=== PATIENT | female | born 1960 | race Caucasian/White ===

== ENCOUNTER 2020-10-18 10:15 | Inpatient (IN) | payer BC, MEDICAID ==
[~2020-10-18] VITALS: Ht 162.6 cm; Wt 91.6 kg
[2020-10-18] MEDS ORDERED: DEXAMETHASONE SOD PHOSPHATE 6 MG in IV D5W 50 ML IV ONE (10:30)
[2020-10-18 10:37] LABS: ABG OXYGEN SATURATION 93.4 % (92.0-98.5); ABG PCO2 26.2 mmHg (35.0-45.0); ABG PH 7.477 (7.350-7.450); ABG PO2 62.4 mmHg (75.0-100.0); AaDO2 192.7 mmHg; COHb 0.8 % (0.5-1.5); MetHb 0.2 % (0.0-1.5); O2Hb 92.5 % (94.0-97.0); SITE, ABG Right Radial; VENT MODE, BG NASAL CANNULA
[2020-10-18 10:53] LABS: WHITE BLOOD COUNT (AUTO) 4.4 K/uL (4.3-11.0)
[2020-10-18] MEDS ORDERED: DEXAMETHASONE SOD PHOSPHATE 10 MG/ML VIAL ONE (10:53)
[2020-10-18 10:56] LABS: BASOPHILS % (AUTO) 0.3 % (0.0-2.0); HEMATOCRIT 38 % (33-45); HEMOGLOBIN 12.9 g/dL (11.5-14.8); LYMPHOCYTES # (AUTO) 0.6 /CMM (0.8-4.8); LYMPHOCYTES % (AUTO) 13.7 % (20.0-44.0); MEAN CORPUSCULAR HGB CONC 34 g/dl (31.0-36.0); MEAN CORPUSCULAR VOLUME 92 fL (82-100); MONOCYTES # (AUTO) 0.3 /CMM (0.1-1.30); MONOCYTES % (AUTO) 6.6 % (2.0-12.0); NEUTROPHILS # (AUTO) 3.5 /CMM (1.8-8.9); NEUTROPHILS % (AUTO) 79.4 % (43.0-81.0); PLATELET COUNT (AUTO) 179 /CMM (150-450); RED BLOOD CELL COUNT(AUTO) 4.15 MIL/uL (4.0-5.2)
--- NOTE | 2020-10-18 10:57 | NUR ---
MOVE SHEET COMPLETE & CALLED FOR TELE BED.
[2020-10-18 10:59] LABS: CALCIUM, SERUM 9.3 mg/dL (8.5-10.1); CARBON DIOXIDE 23 mmol/L (21-32); CHLORIDE 104 mmol/L (98-107); GLUCOSE 114 mg/dL (74-106); POTASSIUM 4.3 mmol/L (3.5-5.1); SODIUM SERUM 138 mmol/L (136-145); UREA NITROGEN, BLOOD 19 mg/dL (7-18)
[2020-10-18] MEDS ORDERED: DEXAMETHASONE SOD PHOSPHATE 10 MG/ML VIAL IV ONE (11:00)
--- NOTE | 2020-10-18 11:08 | NUR ---
BIB ra c/o cough, congestion, fever, and SOB. vs checked. iv access started. seen by
[2020-10-18 11:16] LABS: ALANINE AMINOTRANSFERASE 56 U/L (12-78); ALBUMIN 2.8 g/dL (3.4-5.0); ALKALINE PHOSPHATASE 57 U/L (46-116); ASPARTATE AMINOTRANSFERASE 70 U/L (15-37); B-TYPE NATRIURETIC PEPTIDE 105 PG/ML (0-125); BILIRUBIN,TOTAL 0.6 mg/dL (0.2-1.0); TOTAL PROTEIN, SERUM 7.3 g/dL (6.4-8.2)
[2020-10-18 11:40] LABS: D-DIMER 0.94 mg/L(FEU (0.17-0.50)
--- NOTE | 2020-10-18 11:57 | NUR ---
[facility] CALLED FIELD CHECKER CARLITOD. STEPHANIE.
--- NOTE | 2020-10-18 12:00 | NUR ---
covid and rapid influenza swab done sent to lab. urine collected sent to lab
[2020-10-18] MEDS ORDERED: ACET325T53 PO (12:08)
[2020-10-18 14:11] LABS: CREATINE KINASE, TOTAL 40 U/L (26-192); FERRITIN 754 ng/mL (8-388)
[2020-10-18 15:15] LABS: BILIRUBIN,URINE MODERATE (NEGATIVE); COLOR,URINE YELLOW (YELLOW); LEUKOCYTE ESTERASE ,URINE NEGATIVE (NEGATIVE); NITRITE, URINE NEGATIVE (NEGATIVE); PH,URINE 6.5 (5.0-8.0); PROTEIN,URINE 100 mg/dl (NEGATIVE); UGLUCOSE 100 MG/DL mg/dL (NEGATIVE)
[2020-10-18 16:11] LABS: C-REACTIVE PROTEIN 10.3 mg/dL (0.0-0.9)
[2020-10-18 17:45] LABS: BACTERIA,URINE 1+ /HPF (None Seen); MUCUS,URINE Few /LPF (None Seen); SQUAMOUS EPITHELIAL CELL,UR 0-2 /HPF (None Seen)
--- NOTE | 2020-10-18 19:08 | NUR ---
TOOK OVER PT CARE. PT AAOX4. PRYDEINIG SPEAKING. UPON READING THE TRIAGE NOTED PT WAS BIBRA C/O COUGH AND CONGESTION. PT CURRENTLY ON 4L NC. SAT 94%. PT RESTING COMFORTABLY. CALL LIGHT AT BEDSIDE. WILL CONTINUE TO MONITOR. AWAITING ORDERS.
--- NOTE | 2020-10-18 20:49 | NUR ---
PT SAT 89% ON 4L NC. PT PLACED ON 6L NC IN PRONE POSITION. PT NOW SAT 91%. WILL CONTINUE TO MONITOR.
--- NOTE | 2020-10-18 21:26 | NUR ---
PT SAT 89% ON NC. PT PLACED ON SIMPLE MASK, 10L SAT 90%, WAS THEN PLACED ON 15L NON REBREATHER SAT 96%. REMAINS IN SUPINE POSITION.
--- NOTE | 2020-10-18 22:24 | NUR ---
PT REPOSITIONED TO LEFT SIDE, SAT 93%. VSS.
[2020-10-18] MEDS ORDERED: ONDANSETRON HCL/PF 4 MG/2 ML VIAL IVP PRN (22:30)
[2020-10-18] MEDS ORDERED: MAG HYDROX/AL HYDROX/SIMETH 30 ML UDC PO PRN (22:30)
[2020-10-18] MEDS ORDERED: MAGNESIUM HYDROXIDE 30 ML UDC PO PRN (22:30)
[2020-10-18] MEDS ORDERED: ENOXAPARIN SODIUM 40 MG/0.4 ML DISP.SYRIN SQ SCH ×2 (22:30→23:40)
[2020-10-18] MEDS ORDERED: Z GUARD REMEDY 2 OZ OINT TP PRN (22:30)
--- NOTE | 2020-10-18 22:32 | NUR ---
REC'D POS COVID RESULTS. AWARE
--- NOTE | 2020-10-18 22:40 | NUR ---
CALLED DR BROWN FOR ADMITTING ORDERS
--- NOTE | 2020-10-18 22:44 | NUR ---
PT PLACED ON 6L NC. SAT 96%. VSS. TEMP 98.0.
[2020-10-18] MEDS ORDERED: DEXTROSE 50%-WATER 50 ML DISP.SYRIN IV PRN (23:00)
[2020-10-18] MEDS ORDERED: CEFTRIAXONE 1GM BAG (ER ONLY) 50 ML IV ONE (23:17)
[2020-10-18] MEDS: CEFTRIAXONE 1 G in IV D5W 50 ML IV SCH (23:20)
--- NOTE | 2020-10-18 23:28 | NUR ---
PT PROVIDED WITH MORE BLANKETS. AWARE OF BEING COVID POSITIVE AND PLAN OF CARE.
--- NOTE | 2020-10-19 01:34 | NUR ---
PT ASKED FOR A BLANKET. PROVIDED WITH BLANKET.
--- NOTE | 2020-10-19 03:09 | NUR ---
PT NOW ASLEEP, VSS.
--- NOTE | 2020-10-19 04:05 | NUR ---
PT HIT THE CALL LIGHT AND ASKED FOR ME TO TURN OFF THE AIR HUMIDIFIER, PT EDUCATED ON THE IMPORTANCE OF HAVING IT IN THE ROOM. VSS.
--- NOTE | 2020-10-19 06:12 | NUR ---
BATHHOUSE ATTENDANT AT BEDSIDE FOR MORNING LABS.
--- NOTE | 2020-10-19 06:31 | NUR ---
PT PROVIDED WITH MORE BLANKETS. IV LINE FIXED. PT ON MONITOR AND PULSE OX. VSS.
[2020-10-19 07:01] LABS: CALCIUM, SERUM 9.6 mg/dL (8.5-10.1); CREATININE 0.8 mg/dL (0.6-1.3); MAGNESIUM 2.6 mg/dL (1.8-2.4); PHOSPHORUS 3.1 mg/dL (2.5-4.9); POTASSIUM 4.9 mmol/L (3.5-5.1)
[2020-10-19 07:03] LABS: BASOPHILS % (AUTO) 0.3 % (0.0-2.0); HEMATOCRIT 39 % (33-45); HEMOGLOBIN 13.3 g/dL (11.5-14.8); LYMPHOCYTES # (AUTO) 0.5 /CMM (0.8-4.8); LYMPHOCYTES % (AUTO) 19.9 % (20.0-44.0); MEAN CORPUSCULAR HGB CONC 34 g/dl (31.0-36.0); MEAN CORPUSCULAR VOLUME 92 fL (82-100); MONOCYTES # (AUTO) 0.3 /CMM (0.1-1.30); MONOCYTES % (AUTO) 11.2 % (2.0-12.0); NEUTROPHILS # (AUTO) 1.7 /CMM (1.8-8.9); NEUTROPHILS % (AUTO) 68.6 % (43.0-81.0); PLATELET COUNT (AUTO) 218 /CMM (150-450); WHITE BLOOD COUNT (AUTO) 2.5 K/uL (4.3-11.0)
--- NOTE | 2020-10-19 07:42 | NUR ---
REPORT GIVEN TO ELIGIO NGUYEN FOR YE
--- NOTE | 2020-10-19 08:13 | NUR ---
bs checked 151
[2020-10-19] MEDS: BLOOD SUGAR DIAGNOSTIC 1 EACH STRIP VI SCH ×4 (08:30→22:04)
--- NOTE | 2020-10-19 08:30 | NUR ---
provided pt with breakfast ate 50%,
[2020-10-19] MEDS: DEXAMETHASONE SOD PHOSPHATE 10 MG/ML VIAL IJ SCH (09:49)
[2020-10-19] MEDS ORDERED: HYDROCODONE/APAP 5/325MG TABLET ONE ×2 (10:49→16:27)
[2020-10-19] MEDS: HYDROCODONE/APAP 5/325MG TABLET PO PRN ×2 (10:52→16:36)
--- NOTE | 2020-10-19 12:15 | NUR ---
bs checked 187
[2020-10-19] MEDS: INSULIN REGULAR, HUMAN 100 UNIT/ML 3 ML VIAL SQ PRN (12:29)
--- NOTE | 2020-10-19 12:53 | NUR ---
pt provided with lunch ate 75%
[2020-10-19] MEDS ORDERED: REMDESIVIR (CHARGED) 200 MG, *LOADING DOSE 1 EA in IV NS 0.9% 210 ML IV ONE (17:00)
--- NOTE | 2020-10-19 18:30 | NUR ---
provided pt with dinner. but states that she doesnt have the appetite to eat. bs cliding scale coverage held
[2020-10-19] MEDS: AZITHROMYCIN 500 MG in IV D5W 250 ML IV SCH (18:54)
--- NOTE | 2020-10-19 19:20 | NUR ---
PT AAOX4, SATTING 88% ON 8 L VIA N/C. PT PLACED ON 15 LPM VIA NRB. PT SATTING 97%. PT CONNECTED TO THE MONITOR AND POX. WILL CONTINUE TO MONITOR PT.
[2020-10-19] MEDS ORDERED: ENOXAPARIN SODIUM 40 MG/0.4 ML DISP.SYRIN SQ ONE (21:05)
[2020-10-19] MEDS: ENOXAPARIN SODIUM 40 MG/0.4 ML DISP.SYRIN SQ SCH (21:06)
[2020-10-19] MEDS ORDERED: ACETAMINOPHEN 325 MG TABLET ONE (21:31)
--- NOTE | 2020-10-19 21:41 | NUR ---
PT REPOSITIONED FOR COMFORT. NAD NOTED AT THIS TIME. WILL CONTINUE TO MONITOR PT.
[2020-10-19] MEDS ORDERED: CEFTRIAXONE 1GM BAG (ER ONLY) 50 ML IV ONE (22:00)
[2020-10-19] MEDS ORDERED: INSULIN REGULAR, HUMAN 100 UNIT/ML 10 ML VIAL ONE (22:05)
[2020-10-19] MEDS: *INSULIN REGULAR(HUMULIN R)HUM 100 UNIT/ML VIAL SQ PRN ×2 (22:07→22:24)
[2020-10-19] MEDS: CEFTRIAXONE 1 G in IV D5W 50 ML IV SCH (22:25)
--- NOTE | 2020-10-19 23:26 | NUR ---
PT REPOSITIONED IN BED FOR COMFORT. NAD NOTED AT THIS TIME. WILL CONTINUE TO MONITOR PT.
--- NOTE | 2020-10-19 23:39 | NUR ---
BED ASSIGNMENT 207-2
[2020-10-20 00:55] VITALS: BP 103/71
--- NOTE | 2020-10-20 01:04 | NUR ---
PT MOVED TO ROOM 207-2 IN STABLE CONDITION
--- NOTE | 2020-10-20 01:30 | NUR ---
ENERGY CROP FARMER NOTE: RECEIVED PATIENT FROM ER, NO ACUTE DISTRESS NOTED. BREATHING EVEN AND UNLABORED, NO SOB NOTED AT THIS TIME, ON OXYGEN AT 4 LPM VIA NC. ORIENTED PATIENT TO ROOM AND USE OF CALL LIGHT. BED LOCKED AND IN LOWEST POSITION, CALL LIGHT IN REACH, WILL CONTINUE TO MONITOR.
[2020-10-20 04:00] VITALS: BP 103/71
[2020-10-20 06:14] LABS: BASOPHILS % (AUTO) 0.1 % (0.0-2.0); HEMATOCRIT 40 % (33-45); LYMPHOCYTES # (AUTO) 0.6 /CMM (0.8-4.8); LYMPHOCYTES % (AUTO) 10.8 % (20.0-44.0); MEAN CORPUSCULAR HGB CONC 33 g/dl (31.0-36.0); MEAN CORPUSCULAR VOLUME 94 fL (82-100); MONOCYTES # (AUTO) 0.5 /CMM (0.1-1.30); MONOCYTES % (AUTO) 9.1 % (2.0-12.0); NEUTROPHILS # (AUTO) 4.3 /CMM (1.8-8.9); PLATELET COUNT (AUTO) 246 /CMM (150-450); RED BLOOD CELL COUNT(AUTO) 4.27 MIL/uL (4.0-5.2); WHITE BLOOD COUNT (AUTO) 5.4 K/uL (4.3-11.0)
--- NOTE | 2020-10-20 06:40 | NUR ---
LINING FINISHER NOTE: PATIENT RESTING IN BED, NO ACUTE DISTRESS NOTED. BREATHING EVEN AND UNLABORED, NO SOB NOTED AT THIS TIME, ON OXYGEN AT 4 LPM VIA NC. BED LOCKED AND IN LOWEST POSITION, CALL LIGHT IN REACH, WILL ENDORSE TO DAY NURSE TO CONTINUE WITH PLAN OF CARE.
[2020-10-20 07:19] LABS: ALBUMIN 2.8 g/dL (3.4-5.0); BILIRUBIN,DIRECT 0.2 mg/dL (0.0-0.2); BILIRUBIN,TOTAL 0.5 mg/dL (0.2-1.0); CREATININE 0.7 mg/dL (0.6-1.3); MAGNESIUM 2.6 mg/dL (1.8-2.4); PHOSPHORUS 4.8 mg/dL (2.5-4.9); POTASSIUM 4.4 mmol/L (3.5-5.1); TOTAL PROTEIN, SERUM 7.3 g/dL (6.4-8.2)
[2020-10-20 08:00] VITALS: BP 122/80
--- NOTE | 2020-10-20 08:00 | NUR ---
QUALITY CONTROL MICROBIOLOGY SUPERVISOR AM NOTES RECEIVED PATIENT FROM ER, NO ACUTE DISTRESS NOTED. BREATHING EVEN AND UNLABORED, WITH MILD SOB NOTED AT THIS TIME, ON OXYGEN AT 10 LPM VIA NC. O2 SAT 89-93% REFUSED TO USE O2 MASK SAYING SHE IS CLAUSTROPHOBIC. BED LOCKED AND IN LOWEST POSITION, CALL LIGHT IN REACH, WILL CONTINUE TO MONITOR.
--- NOTE | 2020-10-20 08:20 | NUR ---
NOTIFIED DR BROWN AND MADE AWARE.
[2020-10-20] MEDS: BLOOD SUGAR DIAGNOSTIC 1 EACH STRIP VI SCH ×4 (09:05→21:18)
[2020-10-20] MEDS: DEXAMETHASONE SOD PHOSPHATE 10 MG/ML VIAL IJ SCH (09:09)
--- NOTE | 2020-10-20 09:30 | NUR ---
PT WAS CLAIMING THAT BEFORE SLEEPING SHE WAS HOLDING ON TO HER BRACELET WHICH SHE REMOVED ON HER RT WRIST WHERE THE HEPLOCK SITE IS SITUATED THINKING THAT IT MIGHT RESTRICT HER CIRCULATION.CHECKED ALL THE BLANKETS AND SHEET COVERS AND UNDER THE BED BUT NO BRACELET CAN BE FOUND. PT REFUSED TO HAVE HER PURSE BAG CHECKED INSPITE OF EXPLAINING THE POSSIBILITY THAT IT MIGHT HAVE BEEN PLACED IN HER BAG. PT INSISTS TO REFUSE.
--- NOTE | 2020-10-20 09:40 | NUR ---
PIN PUSHER REPORTED THAT WHILE SHE WAS CHECKING PT'S VITAL SIGNS THIS MORNING,PT STILL HAS HER BRACELET ON. PT REFUSED TO HAVE HER PURSE/BAG CHECKED INSISTING THAT IT ISN'T THERE.
[2020-10-20 12:00] VITALS: BP 140/80
[2020-10-20] MEDS ORDERED: LORAZEPAM INJ 2 MG/ML VIAL IV PRN (12:30)
[2020-10-20 16:00] VITALS: BP 136/80
[2020-10-20] MEDS: REMDESIVIR (CHARGED) 100 MG in IV NS 0.9% 230 ML IV SCH (16:25)
[2020-10-20] MEDS: AZITHROMYCIN 500 MG in IV D5W 250 ML IV SCH (18:18)
--- NOTE | 2020-10-20 19:00 | NUR ---
RN NOTES PT ALERT ORIENTED X 4 , NO ACUTE DISTRESS NOTED. BREATHING EVEN AND UNLABORED, NO SOB NOTED AT THIS TIME, ON OXYGEN AT 10 LPM VIA NC. O2 SAT 89-93% REFUSED TO USE O2 MASK SAYING SHE IS CLAUSTROPHOBIC. BED LOCKED AND IN LOWEST POSITION, CALL LIGHT IN REACH, WILL WILL ENDORSE CARE TO ON COMING NURSE
--- NOTE | 2020-10-20 19:20 | NUR ---
RN OPENING NOTES Pt on bed, O2 via NC, saturating well. Reenforced to pt the max O2 for nasal cannula is only 6LPM, however patient preferred to bring it to 10LPM. Pt noted having anxiety when O2 is decreased to 6LPM. Pt denies any discomfort at this time. On tele monitor with NSR noted. Kept on bed clean, dry and comfortable. On fall and aspiration precautions. Will continue to monitor accordingly.
[2020-10-20 20:00] VITALS: BP 97/62
[2020-10-20 20:16] LABS: BILIRUBIN,URINE NEGATIVE (NEGATIVE); COLOR,URINE YELLOW (YELLOW); LEUKOCYTE ESTERASE ,URINE NEGATIVE (NEGATIVE); NITRITE, URINE NEGATIVE (NEGATIVE); PROTEIN,URINE TRACE mg/dl (NEGATIVE); UGLUCOSE NEGATIVE (NEGATIVE)
[2020-10-20 20:36] LABS: BACTERIA,URINE None seen /HPF (None Seen); RBC,URINE 0-2 /HPF (0-2); SQUAMOUS EPITHELIAL CELL,UR 0-2 /HPF (None Seen); URINE AMORPHOUS URATE Moderate /HPF (None Seen); WBC,URINE 0-2 /HPF (0-3)
[2020-10-20] MEDS: ACETAMINOPHEN 325 MG TABLET PO PRN (21:17)
[2020-10-20] MEDS: ENOXAPARIN SODIUM 40 MG/0.4 ML DISP.SYRIN SQ SCH (21:17)
[2020-10-20] MEDS: CEFTRIAXONE 1 G in IV D5W 50 ML IV SCH (22:24)
[2020-10-21] VITALS: BP 106/62
--- NOTE | 2020-10-21 02:15 | NUR ---
REPORTS RECEIVED FROM PATRICK HUBER FOR CONTINUITY OF CARE.
--- NOTE | 2020-10-21 02:15 | NUR ---
RECEIVED PATIENT IN BED, ASLEEP. NO S/S OF DISTRESS NOTED. CALL LIGHT WITHIN REACH. BED IN LOWEST AND LOCKED POSITION. ON NC AT 10L/MIN.
[2020-10-21 04:00] VITALS: BP 106/55
--- NOTE | 2020-10-21 06:45 | NUR ---
HOME DELIVERY DRIVER CLOSING NOTES: PATIENT IN BED, AWAKE, A/O X4. NO S/S OF DISTRESS NOTED. CALL LIGHT WITHIN REACH. BED IN LOWEST AND LOCKED POSITION. BLOOD SUGAR CHECKED=87, NO INSULIN GIVEN.
[2020-10-21] MEDS: BLOOD SUGAR DIAGNOSTIC 1 EACH STRIP VI SCH ×4 (07:08→21:36)
[2020-10-21 08:00] VITALS: BP 99/59
[2020-10-21 08:00] LABS: BASOPHILS % (AUTO) 0.1 % (0.0-2.0); HEMATOCRIT 38 % (33-45); HEMOGLOBIN 12.8 g/dL (11.5-14.8); LYMPHOCYTES # (AUTO) 1.1 /CMM (0.8-4.8); LYMPHOCYTES % (AUTO) 22.4 % (20.0-44.0); MEAN CORPUSCULAR HGB CONC 34 g/dl (31.0-36.0); MEAN CORPUSCULAR VOLUME 91 fL (82-100); MONOCYTES # (AUTO) 0.5 /CMM (0.1-1.30); MONOCYTES % (AUTO) 9.8 % (2.0-12.0); NEUTROPHILS # (AUTO) 3.2 /CMM (1.8-8.9); NEUTROPHILS % (AUTO) 67.7 % (43.0-81.0); PLATELET COUNT (AUTO) 267 /CMM (150-450); RED BLOOD CELL COUNT(AUTO) 4.14 MIL/uL (4.0-5.2); WHITE BLOOD COUNT (AUTO) 4.8 K/uL (4.3-11.0)
--- NOTE | 2020-10-21 08:05 | NUR ---
CORRECTION OFFICER OPENING NOTES RECEIVED PT ON BED, AAOX4, RESPONSIVE TO ALL STIMULI. NO PRESENCE OF ACUTE RESPIRATORY DISTRESS, ON O2 AT 10 LPM VIA N/C, PLACED HUMIDIFIER PT REFUSED MASK DUE TO CLAUSTROPHOBIC. ABD SOFT AND NON DISTENDED WITH ACTIVE BOWEL SOUNDS. DENIES PAIN AND DISCOMFORT. SKIN WARM TO TOUCH AND DRY. IV LINE AT CREDIT CARD CONTROL CLERK PATENT IN FLUSHING, NO S/SX OF INFILTRATION. TELE MONITOR SHOWS NSR 69. COVID 19 POSITIVE, PPE UTILIZED PER HOSPITAL PROTOCOL. BED IN LOW LOCKED POSITION, SRX2 FOR SAFETY, CALL LIGHT WITHIN REACH. WILL CONT TO MONITOR CARE.
[2020-10-21 08:08] LABS: ALBUMIN 2.7 g/dL (3.4-5.0); BILIRUBIN,DIRECT 0.2 mg/dL (0.0-0.2); BILIRUBIN,TOTAL 0.6 mg/dL (0.2-1.0); CALCIUM, SERUM 8.7 mg/dL (8.5-10.1); CREATININE 0.7 mg/dL (0.6-1.3); POTASSIUM 3.9 mmol/L (3.5-5.1); TOTAL PROTEIN, SERUM 6.7 g/dL (6.4-8.2)
[2020-10-21] MEDS: DEXAMETHASONE SOD PHOSPHATE 10 MG/ML VIAL IJ SCH (08:19)
[2020-10-21] MEDS: INSULIN REGULAR, HUMAN 100 UNIT/ML 3 ML VIAL SQ PRN ×2 (11:40→16:42)
[2020-10-21 12:00] VITALS: BP 110/67
[2020-10-21 16:00] VITALS: BP 114/74
[2020-10-21] MEDS: REMDESIVIR (CHARGED) 100 MG in IV NS 0.9% 230 ML IV SCH (16:40)
--- NOTE | 2020-10-21 19:09 | NUR ---
TITLE ONE KINDERGARTEN TEACHER CLOSING NOTES PT AAOX4. TOLERATING 10 LPM N/C SATING 94%. BM TODAY. DENIES PAIN AND DISCOMFORT. NO NEW SKIN BREAKDOWN. IV SITE AT RFA #20. SITE WITH NO S/SX OF INFILTRATION. COVID+ WITH PPE UTILIZED PROPERLY. TELE MONITOR SHOWS NSR 69. ALL CARE ATTENDED. ENDORSED CARE TO NEXT SHIFT.
--- NOTE | 2020-10-21 19:30 | NUR ---
CARTON MARKER MACHINE NOTES PATIENT IN BED, AWAKE, ALERT AND ORIENTED X 4. BREATHING EVEN AND UNLABORED ON 10L NC. SHOWS NO SIGNS OF ACUTE RESPIRATORY DISTRESS. NO ACUTE PAIN. TELE MONITOR SR. IV ON RFA 20G ITS CLEAN DRY AND INTACT. SHOWS NO SIGNS OF INFILTRATION, NO REDNESS. SAFETY PRECAUTIONS IN PLACE. BED IN LOWEST POSITION, LOCKED, AND CALL LIGHT KEPT WITHIN REACH. WILL CONTINUE TO MONITOR.
[2020-10-21 20:00] VITALS: BP 122/64
[2020-10-21] MEDS: ENOXAPARIN SODIUM 40 MG/0.4 ML DISP.SYRIN SQ SCH (21:30)
[2020-10-21] MEDS: *INSULIN REGULAR(HUMULIN R)HUM 100 UNIT/ML VIAL SQ PRN (21:31)
[2020-10-21] MEDS: ACETAMINOPHEN 325 MG TABLET PO PRN (21:35)
[2020-10-22] VITALS: BP 109/59
[2020-10-22] MEDS: BLOOD SUGAR DIAGNOSTIC 1 EACH STRIP VI SCH ×4 (06:39→21:50)
--- NOTE | 2020-10-22 07:20 | NUR ---
DESTINATION SPECIALIST NOTES PATIENT RECEIVED IN BED, ALERT AND ORIENTED X 4, [place] SPEAKING. ON NASAL CANNULA 8 LITERS WITH HUMIDIFIER. PATIENT PRESENTING NO SIGNS OF RESPIRATORY DISTRESS AT THIS TIME. ON SPEEDER OPERATOR, 89 SINUS RHYTHM. IV ACCESS INTACT AND PATENT. PATIENT PRESENTING WITH NO PAIN AT THIS TIME. SAFETY PRECAUTIONS IMPLEMENTED WITH BED LOCKED, BILATERAL SIDE RAILS UP, BED ALARM ON, BED IN THE LOWEST POSITION, AND CALL LIGHT WITHIN EASY REACH, WILL CONTINUE TO MONITOR.
[2020-10-22 07:21] LABS: BASOPHILS % (AUTO) 0.1 % (0.0-2.0); EOSINOPHILS % (AUTO) 0.1 % (0.0-6.0); HEMATOCRIT 38 % (33-45); HEMOGLOBIN 12.6 g/dL (11.5-14.8); LYMPHOCYTES # (AUTO) 0.9 /CMM (0.8-4.8); LYMPHOCYTES % (AUTO) 21.5 % (20.0-44.0); MEAN CORPUSCULAR HGB CONC 33 g/dl (31.0-36.0); MEAN CORPUSCULAR VOLUME 91 fL (82-100); MONOCYTES # (AUTO) 0.5 /CMM (0.1-1.30); MONOCYTES % (AUTO) 12.5 % (2.0-12.0); NEUTROPHILS # (AUTO) 2.6 /CMM (1.8-8.9); NEUTROPHILS % (AUTO) 65.8 % (43.0-81.0); PLATELET COUNT (AUTO) 308 /CMM (150-450); RED BLOOD CELL COUNT(AUTO) 4.16 MIL/uL (4.0-5.2)
[2020-10-22 08:00] VITALS: BP 105/69
[2020-10-22 08:06] LABS: ALBUMIN 2.7 g/dL (3.4-5.0); BILIRUBIN,DIRECT 0.2 mg/dL (0.0-0.2); BILIRUBIN,TOTAL 0.6 mg/dL (0.2-1.0); CREATININE 0.6 mg/dL (0.6-1.3); POTASSIUM 3.6 mmol/L (3.5-5.1); TOTAL PROTEIN, SERUM 6.7 g/dL (6.4-8.2)
[2020-10-22] MEDS: DEXAMETHASONE SOD PHOSPHATE 10 MG/ML VIAL IJ SCH (08:29)
[2020-10-22] MEDS: INSULIN REGULAR, HUMAN 100 UNIT/ML 3 ML VIAL SQ PRN (11:47)
[2020-10-22 12:00] VITALS: BP 98/63
[2020-10-22 16:00] VITALS: BP 109/56
[2020-10-22] MEDS: REMDESIVIR (CHARGED) 100 MG in IV NS 0.9% 230 ML IV SCH (17:36)
[2020-10-22] MEDS: *INSULIN REGULAR(HUMULIN R)HUM 100 UNIT/ML VIAL SQ PRN ×2 (17:43→21:45)
--- NOTE | 2020-10-22 19:03 | NUR ---
VICE PROVOST NOTES PATIENT IN BED RESTING COMFORTABLY, ALERT AND ORIENTED X 4, [place] CITIZEN SPEAKING. ON NASAL CANNULA 8 LITERS WITH HUMIDIFIER WITH NON-LABORED BREATHING. PATIENT PRESENTING NO SIGNS OF RESPIRATORY DISTRESS AT THIS TIME. ON KING MAKER, 92 SINUS RHYTHM. MET ALL OF PATIENT NEEDS. IV ACCESS INTACT AND PATENT. PATIENT PRESENTING WITH NO PAIN AT THIS TIME. SAFETY PRECAUTIONS IMPLEMENTED WITH BED LOCKED, BILATERAL SIDE RAILS UP, BED ALARM ON, BED IN THE LOWEST POSITION, AND CALL LIGHT WITHIN EASY REACH. WILL ENDORSE PLAN OF CARE TO UPCOMING RN.
--- NOTE | 2020-10-22 19:36 | NUR ---
VENEER DRIER FEEDER NOTES PATIENT IN BED, AWAKE, ALERT AND ORIENTED X 4. BREATHING EVEN AND UNLABORED ON 8L NC HUMIDIFIED. SHOWS NO SIGNS OF ACUTE RESPIRATORY DISTRESS. NO ACUTE PAIN. TELE MONITOR SR. IV ON RFA 20G ITS CLEAN DRY AND INTACT. SHOWS NO SIGNS OF INFILTRATION, NO REDNESS. SAFETY PRECAUTIONS IN PLACE. BED IN LOWEST POSITION, LOCKED, AND CALL LIGHT KEPT WITHIN REACH. WILL CONTINUE TO MONITOR.
[2020-10-22 20:00] VITALS: BP 112/63
--- NOTE | 2020-10-22 21:30 | NUR ---
PODIATRY TEACHER NOTES SPOKE TO PATIENT IN BEGINNING OF SHIFT REGARDING TRANSFUSION OF CONVALESCENT PLASMA. PT AGREED. HOWEVER AFTER RECEIVING PHONE CALL FROM LAB THAT THE PLASMA IS READY TO BE PICKED UP. PT REFUSED TO RECEIVE THE PLASMA, EDUCATED ON THE BENEFITS. SHE SPOKE TO FAMILY MEMBER AND CONTINUED TO REFUSED. CALLED LAB UPDATED ON PT'S DECISION. WILL CONTINUE TO MONITOR
[2020-10-22] MEDS: ENOXAPARIN SODIUM 40 MG/0.4 ML DISP.SYRIN SQ SCH (21:47)
[2020-10-22] MEDS: ACETAMINOPHEN 325 MG TABLET PO PRN ×2 (22:02→22:03)
[2020-10-23] MEDS: BLOOD SUGAR DIAGNOSTIC 1 EACH STRIP VI SCH ×4 (06:36→22:48)
[2020-10-23 07:22] LABS: BASOPHILS % (AUTO) 0.1 % (0.0-2.0); EOSINOPHILS % (AUTO) 0.4 % (0.0-6.0); HEMATOCRIT 38 % (33-45); HEMOGLOBIN 12.8 g/dL (11.5-14.8); LYMPHOCYTES # (AUTO) 1.1 /CMM (0.8-4.8); MEAN CORPUSCULAR HGB CONC 34 g/dl (31.0-36.0); MEAN CORPUSCULAR VOLUME 91 fL (82-100); MONOCYTES # (AUTO) 0.5 /CMM (0.1-1.30); NEUTROPHILS # (AUTO) 3.1 /CMM (1.8-8.9); NEUTROPHILS % (AUTO) 66.5 % (43.0-81.0); PLATELET COUNT (AUTO) 328 /CMM (150-450); RED BLOOD CELL COUNT(AUTO) 4.15 MIL/uL (4.0-5.2); WHITE BLOOD COUNT (AUTO) 4.7 K/uL (4.3-11.0)
--- NOTE | 2020-10-23 07:37 | NUR ---
ELECTRICAL INSTRUMENT REPAIRER NOTES PATIENT IN BED, ASLEEP, ALERT AND ORIENTED X 4. BREATHING EVEN AND UNLABORED ON 8L NC. SHOWS NO SIGNS OF ACUTE RESPIRATORY DISTRESS. NO ACUTE PAIN. TELE MONITOR SR. IV ON RFA 20G ITS CLEAN DRY AND INTACT. SHOWS NO SIGNS OF INFILTRATION, NO REDNESS. ALL DUE MEDICATIONS GIVEN. SAFETY PRECAUTIONS IN PLACE. BED IN LOWEST POSITION, LOCKED, AND CALL LIGHT KEPT WITHIN REACH. WILL ENDORSE TO ONCOMING NURSE.
[2020-10-23 07:40] LABS: ALBUMIN 2.7 g/dL (3.4-5.0); BILIRUBIN,DIRECT 0.2 mg/dL (0.0-0.2); BILIRUBIN,TOTAL 0.5 mg/dL (0.2-1.0); CREATININE 0.7 mg/dL (0.6-1.3); POTASSIUM 3.9 mmol/L (3.5-5.1); TOTAL PROTEIN, SERUM 6.6 g/dL (6.4-8.2)
--- NOTE | 2020-10-23 07:58 | NUR ---
DIRECTOR OF SECURITIES AND REAL ESTATE OPEN NOTES PATIENT SLEEPING PRONE POSITION IN BED, WITH NO SIGNS OF DISTRESS ON NASAL CANNULA HUMIDIFIER 8L SPO2 94%. IV R FA #20G INTACT SL. NO COMPLAIN OF PAIN AT THIS TIME. TELE MONITOR. SAFETY MEASURES ARE APPLIED, BED IS IN LOW POSITION SIDE RAILS UP X 2. CALL LIGHT WITHIN REACH. WILL CONTINUE TO MONITOR.
[2020-10-23 08:00] VITALS: BP 94/57
[2020-10-23] MEDS: ZINC SULFATE 220 MG CAPSULE PO SCH (10:05)
[2020-10-23] MEDS: CHOLECALCIFEROL 1,000 UNIT TABLET (VIT D3) PO SCH (10:06)
[2020-10-23] MEDS: DEXAMETHASONE SOD PHOSPHATE 10 MG/ML VIAL IJ SCH (10:06)
[2020-10-23 12:00] VITALS: BP 100/66
[2020-10-23] MEDS: INSULIN REGULAR, HUMAN 100 UNIT/ML 3 ML VIAL SQ PRN ×2 (12:43→19:25)
[2020-10-23 16:00] VITALS: BP 94/50
[2020-10-23] MEDS: REMDESIVIR (CHARGED) 100 MG in IV NS 0.9% 230 ML IV SCH (18:06)
--- NOTE | 2020-10-23 19:40 | NUR ---
TEMPLATE REPRODUCTION TECHNICIAN OPENING NOTES PATIENT AWAKE IN BED. A/OX4. ON 8L NC WITH HUMIDIFIER. NO S/S OF ACUTE RESPIRATORY DISTRESS; BREATHING IS EVEN AND UNLABORED. NO C/O PAIN. TELE MONITOR READING SINUS RHYTHM. IV PRESENT ON LEFT AC, SIZE 24, INTACT & PATENT, HEP LOCKED. CONTACT/DROPLET PRECAUTIONS IN PLACE FOR COVID 19. SAFETY MEASURES IN PLACE AND PATIENT'S NEEDS MET. BED LOCKED, SIDE RAILS X2, CALL LIGHT WITHIN REACH. WILL CONTINUE TO MONITOR.
--- NOTE | 2020-10-23 19:46 | NUR ---
AIRPORT OPERATIONS CREW MEMBER CLOSED NOTES PATIENT SLEEPING PRONE POSITION IN BED, WITH NO SIGNS OF DISTRESS ON NASAL CANNULA HUMIDIFIER 8L SPO2 94%. IV L AC #24G INTACT SL. NO COMPLAIN OF PAIN AT THIS TIME. PATIENT KEPT CLEAN AND DRY. ALL NEEDS, CARE, TREATMENT,AND MEDICATIONS WERE ADMINISTERED ANTICIPATED PER ORDER. SAFETY MEASURES ARE APPLIED, BED IS IN LOW POSITION SIDE RAILS UP X 2. CALL LIGHT WITHIN REACH WILL ENDORSE TO THE SCRIPT WRITER NURSE.
[2020-10-23 20:00] VITALS: BP 97/51
[2020-10-23] MEDS: ENOXAPARIN SODIUM 40 MG/0.4 ML DISP.SYRIN SQ SCH (21:58)
[2020-10-24] VITALS: BP 103/64
[2020-10-24 04:00] VITALS: BP 94/58
[2020-10-24] MEDS: BLOOD SUGAR DIAGNOSTIC 1 EACH STRIP VI SCH ×4 (06:33→22:32)
[2020-10-24 07:05] LABS: BASOPHILS % (AUTO) 0.1 % (0.0-2.0); EOSINOPHILS % (AUTO) 0.7 % (0.0-6.0); HEMATOCRIT 39 % (33-45); HEMOGLOBIN 13.3 g/dL (11.5-14.8); LYMPHOCYTES # (AUTO) 1.2 /CMM (0.8-4.8); LYMPHOCYTES % (AUTO) 21.1 % (20.0-44.0); MEAN CORPUSCULAR HGB CONC 34 g/dl (31.0-36.0); MEAN CORPUSCULAR VOLUME 91 fL (82-100); MONOCYTES # (AUTO) 0.5 /CMM (0.1-1.30); MONOCYTES % (AUTO) 8.3 % (2.0-12.0); NEUTROPHILS % (AUTO) 69.8 % (43.0-81.0); PLATELET COUNT (AUTO) 375 /CMM (150-450); RED BLOOD CELL COUNT(AUTO) 4.31 MIL/uL (4.0-5.2); WHITE BLOOD COUNT (AUTO) 5.7 K/uL (4.3-11.0)
--- NOTE | 2020-10-24 07:06 | NUR ---
BOX STACKER CLOSING NOTES PATIENT SLEEPING, AWAKENS TO NAME. A/OX4. ON 8L NC WITH HUMIDIFIER. NO S/S OF ACUTE RESPIRATORY DISTRESS; BREATHING IS EVEN AND UNLABORED. NO C/O PAIN. TELE MONITOR READING SINUS RHYTHM. IV PRESENT ON LEFT AC, SIZE 24, INTACT & PATENT, HEP LOCKED. SAFETY MEASURES IN PLACE AND PATIENT'S NEEDS MET. BED LOCKED, SIDE RAILS X2, CALL LIGHT WITHIN REACH. WILL ENDORSE TO DAY SHIFT RN PLAN OF CARE.
[2020-10-24 07:29] LABS: CREATININE 0.6 mg/dL (0.6-1.3); POTASSIUM 4.5 mmol/L (3.5-5.1)
--- NOTE | 2020-10-24 07:55 | NUR ---
WELFARE VISITOR OPENING NOTES3 RECEIVED PATIENT RESTING IN BED. A/OX4. ON 8L NC WITH HUMIDIFIER. NO S/S OF ACUTE RESPIRATORY DISTRESS; BREATHING IS EVEN AND UNLABORED WITH NO SOB NOTED. NO C/O PAIN OR DISCOMFORT AT THIS TIME. TELE MONITOR READING SINUS RHYTHM. IV TO LEFT AC #24, PATENT AND INTACT FLUSHING WELL KEPT HEP LOCKED. CONTACT/DROPLET PRECAUTIONS IN PLACE FOR COVID 19. ALL SAFETY MEASURES IN PLACE. BED IS AT LOWEST POSITION AND LOCKED, WITH SIDE RAILS UPX2, AND CALL LIGHT WITHIN REACH. WILL CONTINUE TO MONITOR.
[2020-10-24 08:00] VITALS: BP 97/48
[2020-10-24] MEDS: DEXAMETHASONE SOD PHOSPHATE 10 MG/ML VIAL IJ SCH (09:09)
[2020-10-24] MEDS: ZINC SULFATE 220 MG CAPSULE PO SCH (09:10)
[2020-10-24] MEDS: CHOLECALCIFEROL 1,000 UNIT TABLET (VIT D3) PO SCH (09:10)
[2020-10-24 09:12] LABS: LYMPHOCYTES % (MANUAL) 22 % (16-48); MONOCYTES % (MANUAL) 11 % (0-11.0); NEUTROPHILS % (MANUAL) 67 (42-76)
[2020-10-24 12:00] VITALS: BP 110/55
[2020-10-24] MEDS: *INSULIN REGULAR(HUMULIN R)HUM 100 UNIT/ML VIAL SQ PRN ×3 (12:11→22:32)
[2020-10-24] MEDS: ACETAMINOPHEN 325 MG TABLET PO PRN (17:20)
--- NOTE | 2020-10-24 18:17 | NUR ---
COMMISSIONED FIRE OFFICER OPENING NOTES3 PATIENT RESTING IN BED. A/OX4. ON 8L NC WITH HUMIDIFIER. NO S/S OF ACUTE RESPIRATORY DISTRESS; BREATHING IS EVEN AND UNLABORED WITH NO SOB NOTED. NO C/O PAIN OR DISCOMFORT AT THIS TIME. TELE MONITOR READING SINUS RHYTHM. IV TO LEFT AC #24, PATENT AND INTACT FLUSHING WELL KEPT HEP LOCKED. CONTACT/DROPLET PRECAUTIONS IN PLACE FOR COVID 19. ALL SAFETY MEASURES IN PLACE. BED IS AT LOWEST POSITION AND LOCKED, WITH SIDE RAILS UPX2, AND CALL LIGHT WITHIN REACH. WILL ENDORSE TO ONCOMING SHIFT
--- NOTE | 2020-10-24 19:35 | NUR ---
CEO ZIFF DAVIS: CONTINUITY OF CARE Patient in bed, awake. Non productive cough, strong and dry. Ambulated to the bathroom, denies SOB at rest and with exertion. Contact/Droplet isolation maintained.
[2020-10-24 20:00] VITALS: BP 108/67
[2020-10-24 20:30] VITALS: BP 108/67
--- NOTE | 2020-10-24 20:51 | NUR ---
RUBBER MOULDING MACHINE OPERATOR: REFUSED PLASMA Plasma is ready for transfusion per lab. Plasma reviewed with patient, called Earlene/Next of Kin with her over the phone to assist with translation. Patient refused Plasma, witnessed by PATRICK Mendez. Patient signed consent to Plasma transfusion 10/22/20 but now (10/24/20) refused. Discussed benefits/importance and possible side effect of Plasma to patient but continuous to refused and feels upset to the Nurse, patient stated she only wants antibiotic, she don't want Plasma because she read in the internet Plasma is 50% good and 50% she can from it. Declined education provided. Patient signed refused to Plasma transfusion witnessed by PATRICK Mendez.
[2020-10-24] MEDS ORDERED: GUAIFENESIN/CODEINE 10 ML UDC PO PRN (22:00)
[2020-10-24] MEDS ORDERED: GUAIFENESIN 300 MG/15 ML UDC PO PRN (22:00)
[2020-10-24] MEDS: ENOXAPARIN SODIUM 40 MG/0.4 ML DISP.SYRIN SQ SCH (22:03)
--- NOTE | 2020-10-24 22:04 | NUR ---
CHIEF DIVERSITY OFFICER: ANTICOAGULANT H/H 13. PLT 375 no bleeding. Lovenox injection given witnessed by PATRICK Mendez. Addendum: 10/24/20 at 2218 by KARLI CAPPS RN Clarification: not witnessed, co-signed by PATRICK Mendez
[2020-10-25] VITALS (8 sets, daily range): BP systolic 87–107; BP diastolic 52–64
--- NOTE | 2020-10-25 06:09 | NUR ---
STREETS AND BUILDINGS DECORATOR: END OF SHIFT REPORT Sinus Rhythm HR 62 in the Tele monitor. Patient is A/O x4. Oxygen saturation in mid 90's, cough improved with PRN Robitussin. Remains on Oxygen 6L via NC, denies SOB. No c/o pain, no N/V. Patient refused Convalescent Plasma, Sonu Hester/SLOT SERVICE SPECIALIST is aware. Contact, Droplet isolation with Eye shield protection maintained. Chest XR today. Will endorse to oncoming RN.
[2020-10-25 06:14] LABS: CALCIUM, SERUM 9.3 mg/dL (8.5-10.1); CREATININE 0.7 mg/dL (0.6-1.3); MAGNESIUM 2.4 mg/dL (1.8-2.4); PHOSPHORUS 3.6 mg/dL (2.5-4.9); POTASSIUM 4.4 mmol/L (3.5-5.1)
[2020-10-25 06:26] LABS: BASOPHILS % (AUTO) 0.1 % (0.0-2.0); EOSINOPHILS % (AUTO) 0.4 % (0.0-6.0); HEMATOCRIT 39 % (33-45); HEMOGLOBIN 13.3 g/dL (11.5-14.8); LYMPHOCYTES # (AUTO) 1.2 /CMM (0.8-4.8); LYMPHOCYTES % (AUTO) 18.8 % (20.0-44.0); MEAN CORPUSCULAR HGB CONC 34 g/dl (31.0-36.0); MEAN CORPUSCULAR VOLUME 91 fL (82-100); MONOCYTES # (AUTO) 0.5 /CMM (0.1-1.30); NEUTROPHILS # (AUTO) 4.7 /CMM (1.8-8.9); NEUTROPHILS % (AUTO) 72.7 % (43.0-81.0); PLATELET COUNT (AUTO) 399 /CMM (150-450); RED BLOOD CELL COUNT(AUTO) 4.35 MIL/uL (4.0-5.2); WHITE BLOOD COUNT (AUTO) 6.5 K/uL (4.3-11.0)
[2020-10-25] MEDS: BLOOD SUGAR DIAGNOSTIC 1 EACH STRIP VI SCH ×4 (06:42→21:33)
[2020-10-25] MEDS: INSULIN REGULAR, HUMAN 100 UNIT/ML 3 ML VIAL SQ PRN ×2 (06:42→17:34)
--- NOTE | 2020-10-25 07:30 | NUR ---
DIRECTOR ATHLETIC NOTES PT IN BED, ASLEEP, EASY TO AROUSE, ALERT AND ORIENTED, NO COMPLAINT OF PAIN OR ANY DISCOMFORT, RESPIRATIONS NORMAL, ON O2 AT 4LPM VIA N/C TOLERATES WELL, STILL REFUSING CONVALESCENT PLASMA TRANSFUSION, , CALL LIGHT WITHIN REACH.
[2020-10-25 10:05] LABS: ABG BASE EXCESS -2.5 mmol/L; ABG PCO2 28.3 mmHg (35.0-45.0); ABG PH 7.465 (7.350-7.450); ABG PO2 65.5 mmHg (75.0-100.0); AaDO2 158.4 mmHg; COHb 0.2 % (0.5-1.5); MetHb 0.3 % (0.0-1.5); O2Hb 93.5 % (94.0-97.0); SITE, ABG Right Radial; VENT MODE, BG NC 36%
[2020-10-25] MEDS: ZINC SULFATE 220 MG CAPSULE PO SCH (11:23)
[2020-10-25] MEDS: DEXAMETHASONE SOD PHOSPHATE 10 MG/ML VIAL IJ SCH (11:23)
[2020-10-25] MEDS: CHOLECALCIFEROL 1,000 UNIT TABLET (VIT D3) PO SCH (11:23)
--- NOTE | 2020-10-25 18:18 | NUR ---
LABORER HOISTING NOTES PT IN BED, AWAKE, ALERT AND VERBALLY RESPONSIVE, NO COMPLAINT OF PAIN, NOT IN DISTRESS, CALL LIGHT WITHIN REACH, ASSISTED WITH DINNER, PM CARE PROVIDED, BS CHECKED, INSULIN GIVEN PER SLIDING SCALE ORDERED, ALL NEEDS ATTENDED.
--- NOTE | 2020-10-25 19:40 | NUR ---
STUD DRIVER NOTES RECEIVED REPORT FROM PATRICK WOLFE; PATIENT AWAKE, A/OX4, ABLE TO MAKE NEEDS KNOWN; BREATHING EVENLY AND UNLABORED; NO SOB NOTED; NO ACUTE DISTRESS NOTED AT THIS TIME; WILL CONT PLAN OF CARE
[2020-10-25] MEDS: *INSULIN REGULAR(HUMULIN R)HUM 100 UNIT/ML VIAL SQ PRN (21:35)
[2020-10-25] MEDS: ENOXAPARIN SODIUM 40 MG/0.4 ML DISP.SYRIN SQ SCH (21:35)
[2020-10-25] MEDS: ACETAMINOPHEN 325 MG TABLET PO PRN (21:41)
[2020-10-26] VITALS: BP 90/62
[2020-10-26 04:00] VITALS: BP 95/59
[2020-10-26 06:47] LABS: BASOPHILS % (AUTO) 0.2 % (0.0-2.0); EOSINOPHILS % (AUTO) 0.5 % (0.0-6.0); HEMATOCRIT 39 % (33-45); HEMOGLOBIN 13.4 g/dL (11.5-14.8); LYMPHOCYTES # (AUTO) 1.3 /CMM (0.8-4.8); LYMPHOCYTES % (AUTO) 21.2 % (20.0-44.0); MEAN CORPUSCULAR HGB CONC 34 g/dl (31.0-36.0); MEAN CORPUSCULAR VOLUME 91 fL (82-100); MONOCYTES # (AUTO) 0.5 /CMM (0.1-1.30); MONOCYTES % (AUTO) 8.6 % (2.0-12.0); NEUTROPHILS # (AUTO) 4.4 /CMM (1.8-8.9); NEUTROPHILS % (AUTO) 69.5 % (43.0-81.0); PLATELET COUNT (AUTO) 388 /CMM (150-450); RED BLOOD CELL COUNT(AUTO) 4.31 MIL/uL (4.0-5.2); WHITE BLOOD COUNT (AUTO) 6.4 K/uL (4.3-11.0)
[2020-10-26 07:07] LABS: CALCIUM, SERUM 9.2 mg/dL (8.5-10.1); CREATININE 0.8 mg/dL (0.6-1.3); MAGNESIUM 2.4 mg/dL (1.8-2.4); PHOSPHORUS 3.6 mg/dL (2.5-4.9); POTASSIUM 4.2 mmol/L (3.5-5.1)
--- NOTE | 2020-10-26 07:38 | NUR ---
HIGH PRESSURE BOILER OPERATOR CLOSING NOTES PATIENT RESTING IN BED COMFORTABLY; A/OX4, BREATHING EVENLY AND UNLABORED; NO SOB NOTED; TOLERATING 4LPM VIA NC WELL; NO DISTRESS NOTED; PATIENT DENIES PAIN; TELE MONITOR READS SINUS RHYTHM; PATIENT ABLE TO MAKE NEEDS KNOWN; L AC # 22 S/L INTACT AND PATENT; ISOLATION PRECAUTIONS MAINTAINED; ALL NEEDS RENDERED; SAFETY PRECAUTIONS IMPLEMENTED; WILL ENDORSE YE TO ONCOMING SHIFT
--- NOTE | 2020-10-26 07:45 | NUR ---
TELE/RN OPENING NOTE THE PATIENT IS RECEIVED IN BED ALERT AND ORIENTED X4. DENIES PAIN. PATIENT RECEIVING OXYGEN AT 4L/MIN VIA NASAL CANNULA AND SATURATION IS AT 95%. DENIES SOB. RESPIRATION REGULAR AND UNLABORED. TELE BOX READING IS SINUS RHYTHM 80. BED LOW AND LOCKED. SIDE RAILS UP X3. CALL LIGHT WITHIN REACH. WILL CONTINUE TO MONITOR.
[2020-10-26] MEDS: BLOOD SUGAR DIAGNOSTIC 1 EACH STRIP VI SCH ×3 (07:48→17:33)
[2020-10-26 08:00] VITALS: BP 99/56
[2020-10-26] MEDS: CHOLECALCIFEROL 1,000 UNIT TABLET (VIT D3) PO SCH (09:22)
[2020-10-26] MEDS: ZINC SULFATE 220 MG CAPSULE PO SCH (09:22)
[2020-10-26] MEDS: DEXAMETHASONE SOD PHOSPHATE 10 MG/ML VIAL IJ SCH (09:22)
[2020-10-26 12:00] VITALS: BP 98/72
[2020-10-26 16:00] VITALS: BP 103/54
[2020-10-26] MEDS: INSULIN REGULAR, HUMAN 100 UNIT/ML 3 ML VIAL SQ PRN (17:31)
--- NOTE | 2020-10-26 18:53 | NUR ---
TELE/RN CLOSING NOTE THE PATIENT IS ALERT AND ORIENTED X4. DENIES PAIN. PATIENT IS RECEIVING OXYGEN AT 4L/MIN VIA NASAL CANNULA AND SATURATION IS AT 94%. DENIES SOB. RESPIRATION REGULAR AND UNLABORED. LAC G 22 PATENT AND SALINE LOCKED. TELE BOX READING IS SINUS RHYTHM. BED LOW AND LOCKED. SIDE RAILS UP X3. CALL LIGHT WITHIN REACH. WILL ENDORSE TO TEST HOLE DRILLER.
[2020-10-26 20:00] VITALS: BP 103/64
--- NOTE | 2020-10-26 20:00 | NUR ---
MS2/RN RECEIVED PATIENT IN BED AWAKE, ALERT, ORIENTED, COMFORTABLE, NO C/O PAIN, NO DISTRESS NOTED, CALL LIGHT IN REACH, WILL MONITOR.
[2020-10-26] MEDS: ENOXAPARIN SODIUM 40 MG/0.4 ML DISP.SYRIN SQ SCH (23:05)
[2020-10-26] MEDS: *INSULIN REGULAR(HUMULIN R)HUM 100 UNIT/ML VIAL SQ PRN (23:56)
[2020-10-27] VITALS: BP 100/59
[2020-10-27] MEDS: BLOOD SUGAR DIAGNOSTIC 1 EACH STRIP VI SCH ×4 (00:01→18:08)
[2020-10-27 04:00] VITALS: BP 97/64
--- NOTE | 2020-10-27 06:54 | NUR ---
MS2/RN PATIENT IS AWAKE, COMFORTABLE, NO DISTRESS NOTED, ALL NEEDS ATTENDED AT THIS TIME, WILL CONTINUE TO MONITOR.
[2020-10-27 06:55] LABS: BASOPHILS % (AUTO) 0.1 % (0.0-2.0); EOSINOPHILS % (AUTO) 0.2 % (0.0-6.0); HEMATOCRIT 38 % (33-45); LYMPHOCYTES # (AUTO) 1.4 /CMM (0.8-4.8); LYMPHOCYTES % (AUTO) 20.3 % (20.0-44.0); MEAN CORPUSCULAR HGB CONC 34 g/dl (31.0-36.0); MEAN CORPUSCULAR VOLUME 91 fL (82-100); MONOCYTES # (AUTO) 0.7 /CMM (0.1-1.30); MONOCYTES % (AUTO) 10.1 % (2.0-12.0); NEUTROPHILS # (AUTO) 4.8 /CMM (1.8-8.9); NEUTROPHILS % (AUTO) 69.3 % (43.0-81.0); PLATELET COUNT (AUTO) 364 /CMM (150-450); WHITE BLOOD COUNT (AUTO) 6.9 K/uL (4.3-11.0)
--- NOTE | 2020-10-27 07:07 | NUR ---
HEATING AND VENTILATING WORKER OPENING NOTES RECEIVED PT AWAKE AT THIS TIME. PT X 4. PT ABLE TO MAKE VERBALIZE NEEDS. NO SOB NOTED, NO S/S OF ANY APPARENT DISTRESS NOTED AT THIS TIME. NO C/O PAIN AT THIS TIME. RESPIRATIONS ARE EVEN AND UNLABORED WITH EQUAL RISE AND FALL IN CHEST. PT NOTED ON OXYGEN 4LPM VIA NC. IV ACCESS NOTED IN LAC G#22 INTACT, PATENT AND FLUSHING WELL. SAFETY PRECAUTION IN PLACE AND MAINTAINED AT ALL TIMES. BED IN LOWEST LOCKED POSITION, HOB ELEVATED, SIDE RAILS UP X 2, CALL LIGHT AND TABLE WITHIN REACH. WILL CONTINUE TO MONITOR
[2020-10-27 07:42] LABS: CALCIUM, SERUM 9.1 mg/dL (8.5-10.1); CREATININE 0.7 mg/dL (0.6-1.3); MAGNESIUM 2.2 mg/dL (1.8-2.4); PHOSPHORUS 3.6 mg/dL (2.5-4.9); POTASSIUM 4.1 mmol/L (3.5-5.1)
[2020-10-27 08:00] VITALS: BP 96/53
[2020-10-27] MEDS: CHOLECALCIFEROL 1,000 UNIT TABLET (VIT D3) PO SCH (09:27)
[2020-10-27] MEDS: DEXAMETHASONE SOD PHOSPHATE 10 MG/ML VIAL IJ SCH (09:28)
[2020-10-27] MEDS: ZINC SULFATE 220 MG CAPSULE PO SCH (09:28)
[2020-10-27 12:00] VITALS: BP 95/53
--- NOTE | 2020-10-27 15:33 | NUR ---
RN NOTES PATIENT UP IN CHAIR, STARTED PATIENT ON O2 TITRATION CURRENTLY ON ROOM AIR WITH O2 SAT OF 94%. WILL CONTINUE TO MONITOR.
[2020-10-27 16:00] VITALS: BP 103/63
[2020-10-27] MEDS ORDERED: Zinc Sulfate PO (16:43)
[2020-10-27] MEDS ORDERED: CHOL100062 PO (16:43)
--- NOTE | 2020-10-27 17:45 | NUR ---
RN NOTES PATIENT REMAINS ON ROOM WITHOUT RESPIRATORY DISTRESS WITH SPO2 OF 94-97%.
[2020-10-27] MEDS: INSULIN REGULAR, HUMAN 100 UNIT/ML 3 ML VIAL SQ PRN (18:11)
--- NOTE | 2020-10-27 19:17 | NUR ---
PT DISCHARGE TO HOME AT THIS TIME. PT MEDICALLY STABLE. ALL CARE, NEEDS, TREATMENT AND MEDICATIONS ADMINISTERED ANTICIPATED PER SCHEDULE. PT KEPT CLEAN AND DRY. ALL DISCHARGE INSTRUCTIONS PROVIDED, PT VERBALIZED UNDERSTANDING. DISCHARGE INSTRUCTIONS AND PAPERS HANDED TO PT. BELONGINGS WITH PT. IV ACCESS REMOVED, PRESSURE APPLIED, SECURE WITH GAUZE AND TAPE. NO SIGN OF BLEEDING NOTED. ID BAND REMOVED. PT TRANSPORTED TO IN STABLE CONDITION OUT OF UNIT/HOSPITAL BY TWO AMBULANCE PERSONNELS.
== END 2020-10-27 19:17 | disposition home or self-care (01) | DRG 137 ==
LOC: ER 10:26 → TRANSITION 19:48 → TELE2 10-19 23:39
PROVIDERS: ADMIT Internal Medicine; ATTEND Nurse Practitioner Acute Care
PROC: XW033E5 Introduction of Remdesivir Anti-infective into Peripheral Vein, Percutaneous Approach, New Technology Group 5 (ICD-10-PCS; principal; 2020-10-20)
DX: U07.1 COVID-19 (principal); J12.89 Other viral pneumonia; E66.9 Obesity, unspecified; E43 Unspecified severe protein-calorie malnutrition; E88.09 Other disorders of plasma-protein metabolism, not elsewhere classified; E11.9 Type 2 diabetes mellitus without complications; I25.10 Atherosclerotic heart disease of native coronary artery without angina pectoris; J45.909 Unspecified asthma, uncomplicated; J96.01 Acute respiratory failure with hypoxia; Z68.37 Body mass index [BMI] 37.0-37.9, adult; I10 Essential (primary) hypertension
CPT/HCPCS: 36415; 36600; 71045-TC; 80048-TC; 80053-TC; 80076-TC; 81001; 82550-TC; 82728-TC; 82962-TC; 83605-TC; 83615-TC; 83735-TC; 83880; 84100-TC; 84484-TC; 85025-TC; 85378-TC; 85385-TC; 85610-TC; 85730-TC; 86140-TC; 86850-TC; 87040-TC; 87081-TC; 87086-TC; A4216; G0378; J0456; J0696; J1100; J1650; J1815; J2405; J7050; J7060; U0003